=== PATIENT | male | born 1960 | race American Indian/Alaskan Native ===

== ENCOUNTER 2017-07-24 23:02 | Emergency (ER) | payer MEDICARE ==
[2017-07-25 03:21] VITALS: BP 142/87
--- NOTE | 2017-07-25 04:12 | XRay Report ---
FINAL REPORT EXAM: XR CHEST ROUTINE 2V HISTORY: Shortness of breath TECHNIQUE: PA and lateral chest radiographs PRIORS: CT chest angiogram 11/11/2015 FINDINGS: No mediastinal shift. Cardiac silhouette is not enlarged. No pneumothorax. Left basilar opacity. Blunting of the left costophrenic angle. IMPRESSION: Left basilar opacity with small pleural effusion may be infectious in the proper clinical setting. PA and lateral chest radiographic follow-up to resolution is recommended.
[2017-07-25 04:46] LABS: Calcium 8.7 mg/dL (8.4-10.2)
[2017-07-25 05:29] LABS: Basophils % (Auto) 0.1 % (0.0-1.8); Eosinophils % (Auto) 0.3 % (0.0-4.3); Hemoglobin 11.1 gm/dl (11.8-15.2); Lymphocytes # (Auto) 1.1 K/mm3 (1.2-5.4); Lymphocytes % (Auto) 9.2 % (13.4-35.0); Mean Corpuscular HGB Conc 33 % (32-34); Mean Corpuscular Hemoglobin 27 pg (28-32); Mean Corpuscular Volume 84 fl (84-94); Monocytes # (Auto) 1.2 K/mm3 (0.0-0.8); Platelet Count 317 K/mm3 (140-440); Red Blood Count 4.06 M/mm3 (3.65-5.03); Red Cell Distribution Width 14.9 % (13.2-15.2)
[2017-07-25 07:49] LABS: Chol/HDL Ratio 3.84 %
== END 2017-07-25 11:46 | disposition left against medical advice (07) ==
LOC: ED 23:02
DX: R60.0 Localized edema (principal); R05 Cough; Z53.21 Procedure and treatment not carried out due to patient leaving prior to being seen by health care provider
CPT/HCPCS: 36415; 71046; 80048; 80061; 83880; 84484; 85025; 93005; 93010